=== PATIENT | female | born 1975 | race Caucasian/White ===

== ENCOUNTER → 2023-08-04 | Outpatient (CLI) | payer OTHER, SELFPAY ==
--- OUTSIDE RECORDS SUMMARY | 2023-08-04 20:00 | XMS RPT_ITS | CCD ---
Author Name Unknown Address [address] [place] [address] Organization [facility] Care Team Providers Care Ep Technologist Name Role Phone Pierre Mosher Attending Unavailable Christi Brooks Referring Unavailabl Amanda Valenzuela Denise Primary Care Unavailab Pierre Tomas Attending Unavailable Amanda Ny Referring Unavailab Amanda Mills October Primary Care Unavailab Pierre Tomas Admitting Unavailable Pierre Mosher Unavailable Unavailable Mary Alice Yuan Unavailable Unavailable Shira De [place] Unavailable Unavailable Amanda Ny Unavailable Unavailable Amanda Ny Unavailable Unavailable Kaushal Roche Primary Care Provider KAUSHAL ROCHE Primary Care Unavailable Glo Stroud Primary Care Provider [phone] Glo Stroud Unavailable Gerald Samuel Unavailable Glo Stroud CNP Primary Care Provider Glo Valdes Primary Care Provider [phone] Glo Valdes Primary Care Provider [phone] Glo Stroud CNP Primary Care Provider Glo Valdes Primary Care Provider [phone] GLO STROUD Primary Care Unavailable GLO STROUD Referring Unavailable ELLIOTT AGUIRRE Attending Unavailable GLO STROUD Admitting Unavailable SIRENA, ALEXA FIDENCIO Referring Unavailable SIRENA, ALEXA FIDENCIO Attending Unavailable LUANNE, GLO TEGAN Primary Care Unavailable VIAU, ELLIOTT EBONIE Referring Unavailable VIAU, ELLIOTT LUCIOER Attending Unavailable LUANNE, GLO TEGAN Primary Care Unavailable VIAU, ELLIOTT EBONIE Referring Unavailable VIAU, ELLIOTT EBONIE Attending Unavailable LUANNE, GLO TEGAN Primary Care Unavailable LUANNE, GLO ETGAN Primary Care Unavailable VIAU, ELLIOTT EBONIE Referring Unavailable VIAU, ELLIOTT EBONIE Attending Unavailable LUANNE, GLO Attending Unavailable LUANNE, GLO Consulting Unavailable LUANNE, GLO Primary Care Unavailable LUANNE, GLO Admitting Unavailable PROVIDER, UNKNOWN Consulting Unavailable LUANNE, GLO Attending Unavailable LUANNE, GLO Consulting Unavailable LUANNE, GLO Primary Care Unavailable LUANNE, GLO Admitting Unavailable PROVIDER, UNKNOWN Consulting Unavailable LUANNE, GLO Consulting Unavailable LUANNE, GLO Primary Care Unavailable LUANNE, GLO Admitting Unavailable LUANNE, GLO Attending Unavailable PROVIDER, UNKNOWN Consulting Unavailable Zion, Dr. Sonia Willard Attending Bhupinder Stroud, Ms. Glo Javed Referring Unavailable Zion, Dr. Sonia Willard Attending Bhupinder Donovan, Dr. Sonia Willard Admitting Bhupinder Stroud, Ms. Glo Tegan Referring Unavailable Luanne, Glo K Unavailable Unavailable Unavailable Luanne [employer], Glo K Primary Care Provider [phone] Luanne EVENT COORDINATOR-SHANK FAKER, Glo K Primary Care Provider LUANNE, GLO K Referring Unavailable LUANNE, GLO K Primary Care Unavailable LUANNE, GLO K Attending Unavailable LUANNE, GLO K Referring Unavailable LUANNE, GLO K Primary Care Unavailable LUANNE, GLO K Attending Unavailable SIEGAL, BALDEV Attending Unavailable SIEGAL, BALDEV Referring Unavailable LUANNE, GLO K Primary Care Unavailable SIEGAL, BALDEV Attending Unavailable SIEGAL, BALDEV Referring Unavailable LUANNE, GLO K Primary Care Unavailable SIEGAL, BALDEV Referring Unavailable LUANNE, GLO K Primary Care Unavailable SIEGAL, BALDEV Attending Unavailable SELF, SELF Referring Unavailable JJ NGO Attending Unavailable LUANNE, GLO K Primary Care Unavailable LUANNE, GLO K Attending Unavailable LUANNE, GLO K Referring Unavailable LUANNE, GLO K Primary Care Unavailable LUANNE, GLO K Primary Care Unavailable LUANNE, GLO K Primary Care Unavailable LUANNE, GLO K Primary Care Unavailable LUANNE, GLO K Primary Care Unavailable LUANNE, GLO K Primary Care Unavailable SIEGAL, BALDEV Admitting Unavailable BALDEV RUIZ Attending Unavailable BALDEV RUIZ Referring Unavailable BALDEV RUIZ Admitting Unavailable BALDEV RUIZ Attending Unavailable BALDEV RUIZ Referring Unavailable GLO STROUD Primary Care Unavailable GLO STROUD Primary Care Unavailable Allergies Allergy Classification Reported Allergen(s) Allergy Type Date of Onset Reaction(s) Facility (9 sources) Bromocriptine; Translations: [BROMOCRIPTINE] Drug Allergy 6 GI Intolerance [facility] (9 sources) Codeine; Translations: [CODEINE] Drug Allergy 6 GI Intolerance [facility] (9 sources) Meperidine; Translations: [MEPERIDINE] Drug Allergy 6 GI Intolerance [facility] (9 sources) Morphine; Translations: [MORPHINE] Drug Allergy 6 GI Intolerance [facility] (9 sources) Coconut Flavor; Translations: [COCONUT FLAVOR] Propensity to adverse reactions to drug 6 Anaphylaxis [facility] (1 source) Coconut Oil Drug Allergy Swelling/Edema, Rash [facility] Medications Current Medications Medication Drug Class(es) Dates Sig (Normalized) Sig (Original) amitriptyline hydrochloride 25 mg oral tablet (12 sources) Tricyclic Antidepressant Start: 09-20-2022 take 2 tablets by mouth at bedtime Amitriptyline 25 MG tablet Indications: Tension headache Take 2 tablets by mouth at bedtime. 60 tablet 6 11/24/2022 Active Completed/Discontinued Medications Medication Drug Class(es) Dates Sig (Normalized) Sig (Original) biotin 5 mg oral capsule (1 source) Start: 8 Biotin 5000 MCG Oral Capsule USE DIRECTED Refills: 0 DO Start : 28-Mar-2018 Active onabotulinumtoxina 100 unt injection (7 sources) Acetylcholine Release Inhibitor Start: 3 End: 3 onabotulinumtoxinA (BOTOX) injection 200 Units Problems Active Problems Problem Classification Problem Date Documented Da te Episodic/Chronic Alcohol-related disorders (1 source) Alcohol dependence, uncomplicated; Translations: [Alcohol dependence, uncomplicated] Onset: 07-12-2022 Chronic Anxiety disorders (3 sources) Other specified anxiety disorders; Translations: [Mixed anxiety and depressive disorder] Onset: 06-07-2018 Chronic Complication of device; implant or graft (1 source) Ulcer of anastomosis; Translations: [Gastrojejunal ulcer, unspecified as acute or chronic, without mention of hemorrhage or perforation, without mention of obstruction] Episodic Complication of device; implant or graft (1 source) 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, implants and grafts, initial encounter; Translations: [Stenosis due to other internal prosth dev/grft, init] Onset: 06-07-2018 Deficiency and other anemia (1 source) Anemia; Translations: [Anemia, unspecified] Episodic Diabetes mellitus without complication (1 source) Impaired fasting glucose; Translations: [Impaired fasting glucose] Onset: 07-13-2022 Episodic Esophageal disorders (5 sources) Gastro-esophageal reflux disease without esophagitis; Translations: [Gastroesophageal reflux disease without esophagitis] Onset: 06-07-2018 Chronic Gastroduodenal ulcer (except hemorrhage) (1 source) Ulcer of anastomosis; Translations: [Anastomotic ulcer S/P gastric bypass] Chronic Headache; including migraine (12 sources) Migraine; Translations: [Migraine, unspecified, not intractable, without status migrainosus] Onset: 08-16-2022 Chronic Nausea and vomiting (6 sources) Nausea with vomiting, unspecified; Translations: [Vomiting] Onset: 06-07-2018 Episodic Nausea and vomiting (1 source) Vomiting, unspecified; Translations: [Vomiting, unspecified] Onset: 03-28-2018 Nutritional deficiencies (1 source) Vitamin D deficiency, unspecified; Translations: [Vitamin D deficiency, unspecified] Onset: 07-12-2022 Chronic Other aftercare (1 source) Patient encounter status; Translations: [Encounter for follow-up examination after completed treatment for conditions other than malignant neoplasm] 12-05-2022 Episodic Other and ill-defined cerebrovascular disease (3 sources) Cerebral aneurysm, nonruptured; Translations: [Cerebral aneurysm, nonruptured] Onset: 06-07-2018 Chronic Other and ill-defined cerebrovascular disease (1 source) Intracranial aneurysm; Translations: [Cerebral aneurysm, nonruptured] Chronic Other circulatory disease (1 source) H/O: cardiovascular disease; Translations: [Personal history of other diseases of the circulatory system] 12-05-2022 Episodic Other gastrointestinal disorders (1 source) Diarrhea, unspecified; Translations: [Diarrhea, unspecified] Onset: 06-07-2018 Episodic Other gastrointestinal disorders (4 sources) Bariatric surgery status; Translations: [Bariatric surgery status] Onset: 03-28-2018 Episodic Other gastrointestinal disorders (1 source) History of bypass of stomach; Translations: [Bariatric surgery status] Episodic Other gastrointestinal disorders (1 source) History of bariatric surgical procedure; Translations: [Bariatric surgery status] 12-05-2022 Episodic Other hereditary and degenerative nervous system conditions (1 source) Essential tremor; Translations: [Essential tremor] Chronic Other nervous system disorders (2 sources) Other chronic pain; Translations: [Other chronic pain] Onset: 08-16-2022 Chronic Other nervous system disorders (1 source) Intermittent tremor; Translations: [Tremor, unspecified] Episodic Other non-traumatic joint disorders (1 source) Bilateral chronic pain of upper limbs; Translations: [Pain in right shoulder] Episodic Other non-traumatic joint disorders (1 source) Shoulder pain; Translations: [Pain in right shoulder] 10-03-2022 Episodic Other nutritional; endocrine; and metabolic disorders (2 sources) Unintentional weight loss; Translations: [Loss of weight] Episodic Other screening for suspected conditions (not mental disorders or infectious disease) (2 sources) Encounter for screening for lipoid disorders; Translations: [Patient encounter status] Onset: 07-12-2022 Episodic Residual codes; unclassified (1 source) Tobacco user; Translations: [Tobacco use disorder] Chronic Residual codes; unclassified (2 sources) Altered mental status; Translations: [Altered mental status] 07-26-2021 Episodic Residual codes; unclassified (1 source) Pain; Translations: [Pain, unspecified] 10-03-2022 Episodic Residual codes; unclassified (2 sources) Pain, unspecified; Translations: [Pain, unspecified] Onset: 10-03-2022 Episodic Residual codes; unclassified (1 source) Postmenopausal state; Translations: [Asymptomatic postmenopausal status (age-related) (natural)] Episodic Residual codes; unclassified (1 source) History finding; Translations: [Other specified conditions influencing health status] Episodic Skull and face fractures (1 source) Closed fracture of nasal bones; Translations: [Closed fracture of nasal bone, initial encounter] Episodic Spondylosis; intervertebral disc disorders; other back problems (5 sources) Inflammation of sacroiliac joint; Translations: [Sacroiliitis, not elsewhere classified] Onset: 08-02-2023 4 Chronic Substance-related disorders (3 sources) Nicotine dependence, unspecified, uncomplicated; Translations: [Tobacco user] Onset: 06-07-2018 12-05-2022 Chronic Thyroid disorders (2 sources) Other specified hypothyroidism; Translations: [Hypothyroidism] Onset: 10-08-2022 12-05-2022 Chronic Unclassified (2 sources) MEDICATION COMPLICATIONS 2021 Past or Other Problems Problem Classification Problem Date Documented Da te Episodic/Chronic Other non-traumatic joint disorders (4 sources) Pain in right shoulder; Translations: [Pain in right shoulder] Onset: 08-16-2022 Episodic Other non-traumatic joint disorders (4 sources) Pain in left shoulder; Translations: [Pain in left shoulder] Onset: 08-16-2022 Episodic Other nutritional; endocrine; and metabolic disorders (1 source) Abnormal weight loss; Translations: [Abnormal weight loss] Onset: 03-28-2018 Episodic Spondylosis; intervertebral disc disorders; other back problems (7 sources) Neck pain; Translations: [Cervicalgia] Onset: 08-16-2022 10-03-2022 Episodic Unclassified (1 source) History of bypass of stomach; Translations: [Gastric bypass status for obesity] Unclassified (1 source) History finding; Translations: [No pertinent past medical history] Unclassified (1 source) Low back pain, unspecified; Translations: [Low back pain, unspecified] Onset: 10-03-2022 Results Test Name Value Interpretation Reference Range Facil ity Vital Signs Date Time Vital Sign Value Performing Clinician Facility 08-03-2023 11:30-0500 Diastolic blood pressure 61 mm[Hg] Baldev Ruiz MD Work Phone: [facility] 08-03-2023 11:30-0500 Respiratory rate 16 /min Baldev Ruiz MD Work Phone: [facility] 08-03-2023 11:30-0500 Systolic blood pressure 120 mm[Hg] Baldev Ruiz MD Work Phone: [facility] 08-03-2023 11:20-0500 Body temperature 97.3 [degF] Baldev Ruiz MD Work Phone: [facility] 08-03-2023 11:20-0500 Heart rate 74 /min Baldev Ruiz MD Work Phone: [facility] 08-03-2023 11:20-0500 SaO2% (BldA) [Mass fraction] 96 % Baldev Ruiz MD Work Phone: [facility] 08-03-2023 10:35-0500 Body height 162.6 cm Baldev Ruiz MD Work Phone: [facility] 08-03-2023 10:35-0500 Body mass index (BMI) [Ratio] 21.97 kg/m2 Baldev Ruiz MD Work Phone: [facility] 08-03-2023 10:35-0500 Body weight 58.06 kg Baldev Ruiz MD Work Phone: [facility] 11-22-2022 13:44-0400 Body height 162.5 cm Sonia Donovan MD Work Phone: [facility] 11-22-2022 13:44-0400 Body mass index (BMI) [Ratio] 32.19 kg/m2 Sonia Donovan MD Work Phone: [facility] 11-22-2022 13:44-0400 Body weight 85 kg Sonia Donovan MD Work Phone: [facility] 10-03-2022 14:51-0400 Body height 162.6 cm Elliott Aguirre MD Work Phone: [facility] 10-03-2022 14:51-0400 Body mass index (BMI) [Ratio] 27.46 kg/m2 Elliott Aguirre MD Work Phone: [facility] 10-03-2022 14:51-0400 Body weight 72.58 kg Elliott Aguirre MD Work Phone: [facility] 09-10-2021 15:21-0400 Body height 162.6 cm Jj Ngo MD Work Phone: [facility] 09-10-2021 15:21-0400 Body mass index (BMI) [Ratio] 21.97 kg/m2 Jj Ngo MD Work Phone: [facility] 09-10-2021 15:21-0400 Body weight 58.06 kg Jj Ngo MD Work Phone: [facility] 09-10-2021 15:21-0400 Diastolic blood pressure 77 mm[Hg] Jj Ngo MD Work Phone: [facility] 09-10-2021 15:21-0400 Heart rate 83 /min Jj Ngo MD Work Phone: [facility] 09-10-2021 15:21-0400 SaO2% (BldA) [Mass fraction] 98 % Jj Ngo MD Work Phone: [facility] 09-10-2021 15:21-0400 Systolic blood pressure 110 mm[Hg] Jj Ngo MD Work Phone: [facility] 07-26-2021 01:00-0500 Diastolic blood pressure 68 mm[Hg] Glo Stroud Other Phone: [facility] 07-26-2021 01:00-0500 Heart rate 82 /min Glo Stroud Other Phone: [facility] 07-26-2021 01:00-0500 Respiratory rate 18 /min Glo Stroud Other Phone: [facility] 07-26-2021 01:00-0500 SaO2% (BldA) [Mass fraction] 96 % Glo Stroud Other Phone: [facility] 07-26-2021 01:00-0500 Systolic blood pressure 105 mm[Hg] Glo Stroud Other Phone: [facility] 2021 23:36-0500 Body height 162.5 cm Glo Stroud Other Phone: [facility] 2021 23:36-0500 Body temperature 97.52 [degF] Glo Stroud Other Phone: [facility] 2021 23:36-0500 Body weight 54.5 kg Glo Luanne Other Phone: [facility] 03-30-2020 11:00-0500 Body Temperature 96.3 [degF] [facility] 03-30-2020 11:00-0500 BP Diastolic 87 mm[Hg] [facility] 03-30-2020 11:00-0500 BP Systolic 138 mm[Hg] [facility] 03-30-2020 11:00-0500 Pulse (Heart Rate) 85 /min [facility] 03-30-2020 11:00-0500 Pulse Oximetry 94 % [facility] 03-30-2020 11:00-0500 Respiratory Rate 16 /min [facility] 03-30-2020 08:33-0500 BMI (Body Mass Index) 19.91 kg/m2 [facility] 03-30-2020 08:33-0500 Body weight 52.62 kg [facility] 03-30-2020 08:33-0500 Height 162.6 cm [facility] Encounters Encounter Date Encounter Type Care Provider Facility Start: 08-03-2023 End: 08-03-2023 ambulatory BALDEV RUIZ [facility] Start: 08-03-2023 End: 08-03-2023 Subsequent hospital visit by physician Baldev Ruiz MD Work Phone: [facility] Periop Procedures Date Procedure Procedure Detail Performing Clinician Start: 02-22-2023 Mri spinal canal lum bar w/o contrast material Baldev Ruiz MD Work Phone: Start: 11-22-2022 SURGICAL PATHOLOGY RESULTS Sonia Donovan MD Work Phone: Start: 11-22-2022 Esophagoscopy flexib le transoral diagnostic Glo Stroud EVENT COORDINATOR-SHANK FAKER Work Phone: Start: 10-03-2022 Arthrocentesis aspir &/inj major jt/bursa w/o us Elliott Aguirre MD Work Phone: Start: 10-03-2022 ORDERS (SCAN) Baldev cordero MD Work Phone: Start: 08-16-2022 Radex shoulder compl ete minimum 2 views Glo Stroud [employer] Work Phone: Start: 08-16-2022 Chemodervate facial/trigem/cerv musc migraine Jj Ngo MD Work Phone: Start: 04-19-2022 Chemodervate facial/trigem/cerv musc migraine Jj Ngo MD Work Phone: Start: 01-18-2022 Chemodervate facial/trigem/cerv musc migraine Jj Ngo MD Work Phone: Start: 10-19-2021 Chemodervate facial/trigem/cerv musc migraine Jj Ngo MD Work Phone: Start: 2021 End: 2021 EKG impression Gerald Samuel Start: 2021 Thyrotropin [Units/v olume] in Serum or Plasma Sonia Donovan MD Work Phone: Start: 03-27-2020 SCAN OTHER ORDERS Provi alec Not In System Start: 06-07-2018 Anesthesia upper gi endoscopic px nos Pierre Mosher Start: 06-07-2018 Egd dilation gastric/duodenal stricture Pierre Mosher section Pierre Joseph th History of Total Gastrectomy With Zita-en-Y Reconstruction Pierre Mosher Tonsillectomy Pierre Mosher Plan of Treatment Date Care Activity Detail Author Start: 08-03-2023 End: 08-03-2023 Inject si joint arthrgrphy&/anes/steroid w/sydney [facility] Start: 2023 Zoster vaccine hzv l ngozi for subcutaneous use ZOSTER (SHINGLES) VACCINE (1 of 2) [facility] Start: 2023 Zoster Vaccines (1 of 2) Zoste r Vaccines (1 of 2) [facility] Start: 01-27-2023 COVID-19 VACCINE ( season) COVID-19 VACCINE ( season) [facility] Start: 01-27-2023 Influenza vaccination O [facility] Start: 11-14-2022 End: 11-14-2022 Patient encounter procedure 11/14/2022 Office Visit Neurology Jj Ngo MD [address] [place] [id number] [facility] Neurology Start: 10-17-2022 End: 10-17-2022 Patient encounter procedure 10/17/2022 3:30 PM EDT Office Visit [facility] [address] [place] [address] [place] [phone] Elliott Aguirre MD [address] [place] [id number] [facility] Start: 2022 Thyroid stimulating hormone measurement TSH Level [facility] Start: 04-19-2022 End: 04-19-2022 Patient encounter procedure 04/19/2022 Office Visit Neurology Jj Ngo MD [address] [place] [id number] [facility] Neurology Start: 01-27-2022 Influenza vaccination A [facility] Start: 01-18-2022 End: 01-18-2022 Patient encounter procedure 01/18/2022 Office Visit Neurology Jj Ngo MD [address] [place] [id number] [facility] Neurology Start: 10-13-2021 End: 09-29-2022 MR angiography of head and brain without contrast MRA Brain Without Contrast Imaging Routine Cerebral aneurysm Expected: 10/13/2021, Expires: 09/29/2022 [facility] Work Phone: Immunizations Immunization Date Immunization Notes Care Provider Fa cili 04-09-2020 influenza virus vaccine, unspecified formulation Jj Ngo MD Work Phone: [facility] Payers Date Payer Category Payer [employer] ( [employer] others) [id number] 2021 [employer] others) [id number] 2009 [employer] ( [employer] others) [id number] 2009 Unknown [facility] [id number] 2009-Present [id number] 2009 Unknown [id number] 2009 Unknown 1973 Unknown [id number] 2.16.840.1.619201.3.579.2. 356 1973 Unknown [id number] 2.16.840.1.207713.3.579.2. 356 1973 Unknown [id number] 2.16.840.1.170696.3.579.2. 900 1973 Unknown [id number] 2.16.840.1.114723.3.579.2. 903 1973 Unknown [id number] 2.16.840.1.066979.3.579.2. 903 1973 Unknown [id number] 2.16.840.1.409862.3.579.2. 903 1973 Unknown [id number] 2.16.840.1.006516.3.579.2. 903 1973 Unknown [id number] 2.16.840.1.138373.3.579.2. 903 1973 Unknown [id number] 2.16.840.1.802825.3.579.2. 651 1973 Unknown [id number] 2.16.840.1.910320.3.579.2. 651 1973 Unknown [id number] 2.16.840.1.343380.3.579.2. 651 1973 Unknown [id number] 2.16.840.1.688481.3.579.2. 356 1973 Unknown [id number] 2.16.840.1.698098.3.579.2. 356 1973 Unknown [id number] 2.16.840.1.881044.3.579.2. 983 1973 Unknown [id number] 2.16.840.1.952272.3.579.2. 983 1973 Unknown [id number] 2.16.840.1.804174.3.579.2. 983 1973 Unknown [id number] 2.16.840.1.580570.3.579.2. 983 1973 Unknown [id number] 2.16.840.1.356310.3.579.2. 983 1973 Unknown [id number] 2.16.840.1.782066.3.579.2. 983 1973 Unknown [id number] 2.16.840.1.897599.3.579.2. 983 1973 Unknown [id number] 2.16.840.1.114525.3.579.2. 983 1973 Unknown [id number] 2.16.840.1.478801.3.579.2. 983 1973 Unknown [id number] 2.16.840.1.870469.3.579.2. 983 1973 Unknown [id number] 2.16.840.1.059038.3.579.2. 983 1973 Unknown [id number] 2.16.840.1.637716.3.579.2. 983 1973 Unknown [id number] 2.16.840.1.213972.3.579.2. 983 1973 Unknown [id number] 2.16.840.1.685349.3.579.2. 983 1973 Unknown [id number] 2.16.840.1.037390.3.579.2. 983 1973 Unknown [id number] 2.16.840.1.941964.3.579.2. 983 Social History Date Type Detail Facility Start: 08-13-2017 End: 09-10-2021 Tobacco smoking status NHIS Current every day smoker [facility] Work Phone: Start: 08-13-2017 End: 09-10-2021 Cigarettes smoked current (pack per day) - Reported [facility] Start: 08-13-2017 End: 10-03-2022 Tobacco use and exposure Never used [facility] Start: 08-13-2017 End: 10-03-2022 Alcohol intake Current drinker of alcohol (finding) [facility] Start: 08-08-2017 Alcohol Comment occasional [facility] Start: 1975 Sex Assigned At Not on file O [facility] Start: 09-23-2022 End: 10-03-2022 Exposure to SARS-CoV-2 (event) Not sure [facility] Tobacco smoking consumption unknown [facility] Start: 09-10-2021 Tobacco use and exposure User of smokeless tobacco [facility] History of tobacco use Cigarette Smoker [facility] Start: 04-14-2021 End: 09-10-2021 Tobacco use panel [facility] Start: 03-30-2020 Gender identity Identifies as female gender (finding) [facility] Start: 11-15-2021 Sexual orientation Heterosexual (fin ding) [facility] Start: 08-03-2023 Alcoholic beverage intake Ex-drinker (finding) [facility] NEGATED: Highlighted row - - [facility] Recommendi [facility] Work Phone: Medical Equipment Procedure Code Equipment Code Equipment Origin al Text Equipment Identifier Dates Closure 5fr Vasc ular [employer] W/Extra Card Boxer Min Order 10 - [id number] Start: 08-08-2017 Functional Status Date Assessment Result Facility NEGATED: Highlighted row Functional performance Functional status health issues are not documented Disease [facility] Work Phone: Mental Status Date Assessment Result Facility NEGATED: Highlighted row Cognitive function [Interpretation] Cognitive status health issues are not documented Disease -[facility] Work Phone: Clinical Notes 09-10-2021 to 08-03-2023 Nursing Notes - Antoinette Messina RN - 08/03/2023 11:38 AM ESTNursing Notes - Antoinette Messina RN - 08/03/2023 11:38 AM ESTNursing Notes - Antoinette Messina RN - 08/03/2023 11:37 AM EST Note Date & Type Note Facility 08-03-2023 Nurse Note Pt ambulated off unit at this time with spouse. [facility] 08-03-2023 Miscellaneous Notes Pt ambulated off unit at this time with spouse. Discharge instructions provided, pt states understanding and denies questions. Pt states she understands pain diary. POST OPERATIVE/PROCEDURE NOTE Yisel Hickman ([id number]) SURGEON Surgeons and Role: * Baldev Ruiz MD - Primary RADIO ANTENNA INSTALLER None ANESTHESIOLOGIST No anesthesia staff entered. SURGICAL STAFF Sizing Machine Operator: Willian Bullard RN Scrub Person: Glo Rudolph RN PROCEDURE PERFORMED Procedure(s) (LRB): INJECTION FOR ARTHROGRAPHY SACROILIAC W/ IMAGE GUIDANCE-PATIENT WILL ARRIVE AT 1030 PER HERON FROM THE OFFICE (Right) PRIMARY CLOSURE No ANESTHESIA (type of) Local ESTIMATED BLOOD LOSS None DRAINS None BLOOD PRODUCTS None FLUIDS No intake or output data in the 24 hours ending 08/03/23 1121 PRE OPERATIVE DIAGNOSIS Sacroiliitis [M46.1] POST OPERATIVE DIAGNOSIS Post-Op Diagnosis Codes: * Sacroiliitis [M46.1] FINDINGS No significant abnormalities CONDITION OF PATIENT Stable COMPLICATIONS None GRAFTS AND/OR IMPLANTS See OR Nursing Documentation SPECIMENS No specimen sent * No specimens in log * Baldev Ruiz MD August 03, 2023 11:21 AM documented in this encounter [facility] 08-03-2023 Nurse Note Discharge instructions provided, pt states understanding and denies questions. Pt states she understands pain diary. [facility] 08-03-2023 Hospital Discharge instructions Antoinette Messina RN - 08/03/2023 11:27 AM EST POST SPINAL BLOCK/DISCOGRAM HOME INSTRUCTIONS Dr. [facility] Activity at Home - Gentle activities today. You may resume normal activities tomorrow. - Limit the amount of heavy lifting and strenuous exercise to a minimum. Incision Care - You may remove your Band-Aid tomorrow and take a shower. PLEASE MAKE SURE NOTHING IS RUBBING AGAINST SURGICAL SITE Diet - You may return to your normal daily diet. Slightly increase the amount of fluids you drink today. Medications - Pain medications should be kept to a minimum in order to determine effectiveness of the procedure. All other routine daily medications should be restarted unless specified by your doctor. When to Call Your Surgeon - Your temperature is 101 degrees or above and does not come down with Tylenol. - You notice drainage, increased redness, or warmth at the injection site. - You have calf pain or unusual swelling in your lower legs. - If you are experiencing shortness of breath,loose control of your bowel/bladder, chest pain, or abnormal coughing CALL 911. - Call the office with any questions, problems, or to schedule your next appointment. Our number is . For the next 24 hours: DO NOT DRIVE OR OPERATE HEAVY MACHINERY. DO NOT DRINK ALCOHOL. DO NOT MAKE ANY LIFE OR LEGAL DECISIONS. documented in this encounter [facility] 08-03-2023 Surgery Postoperative evaluation and management note POST OPERATIVE/PROCEDURE NOTE Yisel Hickman ([id number]) SURGEON Surgeons and Role: * Baldev Ruiz MD - Primary RADIO ANTENNA INSTALLER None ANESTHESIOLOGIST No anesthesia staff entered. SURGICAL STAFF Sizing Machine Operator: Willian Bullard RN Scrub Person: Glo Rudolph RN PROCEDURE PERFORMED Procedure(s) (LRB): INJECTION FOR ARTHROGRAPHY SACROILIAC W/ IMAGE GUIDANCE-PATIENT WILL ARRIVE AT 1030 PER HERON FROM THE OFFICE (Right) PRIMARY CLOSURE No ANESTHESIA (type of) Local ESTIMATED BLOOD LOSS None DRAINS None BLOOD PRODUCTS None FLUIDS No intake or output data in the 24 hours ending 08/03/23 1121 PRE OPERATIVE DIAGNOSIS Sacroiliitis [M46.1] POST OPERATIVE DIAGNOSIS Post-Op Diagnosis Codes: * Sacroiliitis [M46.1] FINDINGS No significant abnormalities CONDITION OF PATIENT Stable COMPLICATIONS None GRAFTS AND/OR IMPLANTS See OR Nursing Documentation SPECIMENS No specimen sent * No specimens in log * Baldev Ruiz MD August 03, 2023 11:21 AM [facility] [employer] Work Phone: 08-03-2023 Nurse Note Patient transported per cart to outpatient bay 13. Report given to outpatient RN. OR 3 room temp 64.5 degrees F and humidity 39%. documented in this encounter [facility] 08-03-2023 Nurse Surgical operation note Patient transported per cart to outpatient bay 13. Report given to outpatient RN. [facility] 08-03-2023 Nurse Surgical operation note OR 3 room temp 64.5 degrees F and humidity 39%. [facility] 11-22-2022 Note Patient Name: Yisel Hickman Procedure Date: 11/22/2022 2:40 PM Date of : 1975 Admit Type: Outpatient Site: [place] Procedure Room 2 Ethnicity: Not or Race: White Attending MD: Sonia Donovan MD, [id number] Procedure: Upper GI endoscopy Indications: Follow-up of gastro-esophageal reflux disease, Status post gastric bypass. Previous EGD 06/07/18 (Dr. Pierre Mosher) revealed mild stenosis of the gastrojejunostomy with significant marginal ulceration. This was dilated to 15 mm. Otherwise normal post RYGB anatomy. Patient reports that she has had a marked weight gain recently. Patient Profile: This is a 47 year old female. Providers: Sonia Donovan MD (Doctor), Sara Watkins RN (Nurse), Kristi Joy, Pressure Tester Referring: Glo Stroud Provider Care Team: Glo Stroud Medicines: Monitored Anesthesia Care Complications: No immediate complications. Procedure: Pre-Anesthesia Assessment: - Prior to the procedure, a History and Physical was performed, and patient medications and allergies were reviewed. The patient is competent. The risks and benefits of the procedure and the sedation options and risks were discussed with the patient. All questions were answered and informed consent was obtained. Patient identification and proposed procedure were verified by the physician and the nurse in the procedure room. Mental Status Examination: alert and oriented. Airway Examination: normal oropharyngeal airway and neck mobility. Respiratory Examination: clear to auscultation. CV Examination: regular rate and rhythm. Prophylactic Antibiotics: The patient does not require prophylactic antibiotics. Prior Anticoagulants: The patient has taken no anticoagulant or antiplatelet agents. After reviewing the risks and benefits, the patient was deemed in satisfactory condition to undergo the procedure. The anesthesia plan was to use monitored anesthesia care (MAC). Immediately prior to administration of medications, the patient was re-assessed for adequacy to receive sedatives. The heart rate, respiratory rate, oxygen saturations, blood pressure, adequacy of pulmonary ventilation, and response to care were monitored throughout the procedure. The physical status of the patient was re-assessed after the procedure. - Prior Aspirin/ NSAID therapy: The patient has taken no aspirin or NSAID medications. After obtaining informed consent, the endoscope was passed under direct vision. Throughout the procedure, the patient's blood pressure, pulse, and oxygen saturations were monitored continuously. The diagnostic upper endoscope was introduced through the mouth, and advanced to the jejunum. The upper GI endoscopy was accomplished without difficulty. The patient tolerated the procedure well. Findings: The examined esophagus was normal. The Z-line was regular and was found 37 cm from the incisors. Evidence of a gastric bypass was found. A gastric pouch with a 4 cm length from the GE junction to the gastrojejunal anastomosis was found containing jose. The staple line appeared intact. The gastrojejunal anastomosis was characterized by healthy appearing mucosa. This was traversed. The lcgto-sb-suozloa limb was characterized by healthy appearing mucosa. The woxjmvst-or-qsarrev limb was not examined as it could not be reached. The excluded stomach was not examined as it could not be reached. Patchy mildly erythematous mucosa without bleeding was found in the gastric pouch. Biopsies were taken with a cold forceps for histology. The examined jejunum was normal. Moderate Sedation: Not applicable. Impression: - Z-line regular, 37 cm from the incisors. - Gastric bypass with a pouch 4 cm in length and (more content not included)... PROVATION - 10-03-2022 History of Present illness Narrative Associated Order(s): LG Jt Injection/Arthrocentesis: L subacromial bursa Post-Procedure Diagnose(s): Bilateral shoulder pain, unspecified chronicity LG Jt Injection/Arthrocentesis: L subacromial bursa Performed by: Elliott Aguirre MD Authorized by: Elliott Aguirre MD CPT 86232 - Large Joint Arthrocentesis: Consent given by: Patient Timeout performed at: 10/03/2022 3:26 PM Physician or proceduralist has discussed critical or nonroutine steps, procedure duration and anticipated blood loss: Yes Supporting Documentation: Indications: Pain Procedure Details: Location: Shoulder Site: L subacromial bursa Needle size: 22 G Medications: 40 mg methylPREDNISolone acetate 40 mg/mL Anesthetic used: Lidocaine 1% OPG [address] ([address]) [facility] [address] [facility] [id number] Yisel Hickman is a 47 y.o. female being seen today, 10/03/22, Chief Complaint Patient presents with Right Shoulder - Pain Left Shoulder - Pain Neck - Pain [chief complaint] neck pain bilateral shoulder pain left worse than right HPI Dictation: This lady has symptoms for the 6 months or more she is on meloxicam which she does not feel is helped with significant degree she has had x-rays of her shoulders which are unremarkable her neck x-ray shows loss of normal her daughter curvature some mild degenerative disc disease her pain however is primarily anterolateral shoulder radiating to the elbow with abduction forward flexion but occasional numbness and tingling in both hands in a nondermatomal pattern [hpi] Physical Exam Dictation: [PE] cervical range of motion mildly restricted negative Spurling's with extension turning and leaning to both sides is no radicular symptoms her shoulder however has a pause impingement test increased pain abduction forward flexion past 90 degrees Assessment and Plan Dictation: [AP] early degenerative disc disease cervical spine symptoms more suggestive today however of impingement tendinitis left shoulder plan left shoulder injected today with Xylocaine and cortisone we will see her back in 2 weeks for recheck I have reviewed all relevant histories, medications, allergies, and problem list items with Yisel Hickman during this visit. Review of Systems Constitutional: Negative for chills and fever. HENT: Negative for congestion. Respiratory: Negative for shortness of breath. Cardiovascular: Negative for chest pain. Gastrointestinal: Negative for diarrhea, nausea and vomiting. Neurological: Negative for headaches. Psychiatric/Behavioral: Negative for behavioral problems. Ht 5' 4 Wt 72.6 kg (160 lb) BMI 27.46 kg/m Imaging: No results found. 1. Neck pain 2. Bilateral shoulder pain, unspecified chronicity Ambulatory referral to Sports Medicine Return in about 2 weeks (around 10/17/2022). Elliott Aguirre MD documented in this encounter [facility] 08-16-2022 History of Present illness Narrative Associated Order(s): PREEMPT Chemodenervation: Migraine Botulinum Toxin Injections for Chronic Migraine Interim History Yisel Hickman presents for her 4th session of Botox for chronic migraine. Botox has reduced migraine frequency. PREEMPT Chemodenervation: Migraine Date/Time: 08/16/2022 11:15 AM Performed by: Jj Ngo MD Authorized by: Jj Ngo MD Comments: Description of Procedure: After discussing the risks and benefits of botulinum toxin, the patient provided informed consent. The patient was placed in the seated position on the examination table. The skin was prepped using alcohol pads. A 30-gauge, 0.5 inch-long needle was used with four 1 cc syringes. Concentration: Two 100 unit vials of botox were diluted into 4 ml of normal saline for a concentration of 50 units/1ml. A total of 175 units of botulinum toxin were used and injected as below (divided equally between left and right unless otherwise indicated): 20 units divided into 4 sites in the frontalis muscles 10 units divided into 2 sites in the mechanical design engineer facilities muscles 5 units divided into 1 site in the procerus muscle 40 units divided into 8 sites in the temporalis muscles 30 units divided into 6 sites in the occipitalis muscles 30 units divided into 6 sites in the trapezius muscles 20 units divided into 4 sites in the cervical paraspinal muscles Additional 10 units, 2 sites, 5 units per side into the temporalis muscles. Additional 10 units, 2 sites, 5 units per side into the occipitalis muscles. A total of 25 units were discarded as unavoidable waste. The patient tolerated the procedure well and left the clinic without any complications. Botox ( 200 ) unit vials [facility]# 5211-9903-77 Lot# [id number] Exp date:08/20 Saline: ( 4 )ML Used 175 units Waste 25 units documented in this encounter [facility] 04-19-2022 History of Present illness Narrative Botox ( 200 ) unit vials [facility]# 5901-9694-00 Lot# [id number] Exp date: 09/19 Saline: ( 4 )ML documented in this encounter [facility] 04-19-2022 Procedure note Associated Ord er(s): PREEMPT Chemodenervation: Migraine Post-Procedure Diagnose(s): Chronic migraine without aura without status migrainosus, not intractable Botulinum Toxin Injections for Chronic Migraine Interim History Yisel Hickman presents for her 3rd session of Botox for chronic migraine. Botox has worked very well for lowering migraine frequency. However she is still having daily tension headaches. PREEMPT Chemodenervation: Migraine Date/Time: 04/19/2022 3:30 PM Performed by: Jj Ngo MD Authorized by: Jj Ngo MD Comments: Description of Procedure: After discussing the risks and benefits of botulinum toxin, the patient provided informed consent. The patient was placed in the seated position on the examination table. The skin was prepped using alcohol pads. A 30-gauge, 0.5 inch-long needle was used with four 1 cc syringes. Concentration: Two 100 unit vials of botox were diluted into 4 ml of normal saline for a concentration of 50 units/1ml. A total of 175 units of botulinum toxin were used and injected as below (divided equally between left and right unless otherwise indicated): 20 units divided into 4 sites in the frontalis muscles 10 units divided into 2 sites in the mechanical design engineer facilities muscles 5 units divided into 1 site in the procerus muscle 40 units divided into 8 sites in the temporalis muscles 30 units divided into 6 sites in the occipitalis muscles 30 units divided into 6 sites in the trapezius muscles 20 units divided into 4 sites in the cervical paraspinal muscles Additional 10 units, 2 sites, 5 units per side into the temporalis muscles. Additional 10 units, 2 sites, 5 units per side into the occipitalis muscles. A total of 25 units were discarded as unavoidable waste. The patient tolerated the procedure well and left the clinic without any complications. Plan: Given the patient's persistent tension headaches, we agreed to increase amitriptyline to 50 mg qhs. She is no longer taking trazodone. I asked her to reduce her dose of melatonin if the added amitriptyline caused excessive morning drowsiness. I also advised to limit her use of ondansetron as this can cause headaches. [facility] 04-19-2022 Procedure note Associated Ord er(s): PREEMPT Chemodenervation: Migraine Post-Procedure Diagnose(s): Chronic migraine without aura without status migrainosus, not intractable Botulinum Toxin Injections for Chronic Migraine Interim History Yisel Hickman presents for her 3rd session of Botox for chronic migraine. Botox has worked very well for lowering migraine frequency. However she is still having daily tension headaches. PREEMPT Chemodenervation: Migraine Date/Time: 04/19/2022 3:30 PM Performed by: Jj Ngo MD Authorized by: Jj Ngo MD Comments: Description of Procedure: After discussing the risks and benefits of botulinum toxin, the patient provided informed consent. The patient was placed in the seated position on the examination table. The skin was prepped using alcohol pads. A 30-gauge, 0.5 inch-long needle was used with four 1 cc syringes. Concentration: Two 100 unit vials of botox were diluted into 4 ml of normal saline for a concentration of 50 units/1ml. A total of 175 units of botulinum toxin were used and injected as below (divided equally between left and right unless otherwise indicated): 20 units divided into 4 sites in the frontalis muscles 10 units divided into 2 sites in the mechanical design engineer facilities muscles 5 units divided into 1 site in the procerus muscle 40 units divided into 8 sites in the temporalis muscles 30 units divided into 6 sites in the occipitalis muscles 30 units divided into 6 sites in the trapezius muscles 20 units divided into 4 sites in the cervical paraspinal muscles Additional 10 units, 2 sites, 5 units per side into the temporalis muscles. Additional 10 units, 2 sites, 5 units per side into the occipitalis muscles. A total of 25 units were discarded as unavoidable waste. The patient tolerated the procedure well and left the clinic without any complications. Plan: Given the patient's persistent tension headaches, we agreed to increase amitriptyline to 50 mg qhs. She is no longer taking trazodone. I asked her to reduce her dose of melatonin if the added amitriptyline caused excessive morning drowsiness. I also advised to limit her use of ondansetron as this can cause headaches. documented in this encounter [facility] 01-18-2022 History of Present illness Narrative Botox ( 200 ) unit vials Lot# [id number] [facility]# 0424-5632-26 Exp date 04/21 documented in this encounter [facility] 01-18-2022 Procedure note Associated Ord er(s): PREEMPT Chemodenervation: Migraine Post-Procedure Diagnose(s): Chronic migraine without aura without status migrainosus, not intractable Botulinum Toxin Injections for Chronic Migraine Interim History Yisel Hickman presents for her second session of botox injections for chronic migraines. She reports having fewer migraine headaches but she is still having frequent tension headaches. She does grit her teeth and feels pain over her temples and at the back of the head. PREEMPT Chemodenervation: Migraine Date/Time: 01/18/2022 11:30 AM Performed by: Jj Ngo MD Authorized by: Jj Ngo MD Comments: Description of Procedure: After discussing the risks and benefits of botulinum toxin, the patient provided informed consent. The patient was placed in the seated position on the examination table. The skin was prepped using alcohol pads. A 30-gauge, 0.5 inch-long needle was used with four 1 cc syringes. Concentration: Two 100 unit vials of botox were diluted into 4 ml of normal saline for a concentration of 50 units/1ml. A total of 175 units of botulinum toxin were used and injected as below (divided equally between left and right unless otherwise indicated): 20 units divided into 4 sites in the frontalis muscles 10 units divided into 2 sites in the mechanical design engineer facilities muscles 5 units divided into 1 site in the procerus muscle 40 units divided into 8 sites in the temporalis muscles 30 units divided into 6 sites in the occipitalis muscles 30 units divided into 6 sites in the trapezius muscles 20 units divided into 4 sites in the cervical paraspinal muscles 10 additional units (5 units per side) into the temporalis muscles 10 additional units (5 units per side) into the occpitalis muscles A total of 25 units were discarded as unavoidable waste. The patient tolerated the procedure well and left the clinic without any complications. [facility] 01-18-2022 Procedure note Associated Ord er(s): PREEMPT Chemodenervation: Migraine Post-Procedure Diagnose(s): Chronic migraine without aura without status migrainosus, not intractable Botulinum Toxin Injections for Chronic Migraine Interim History Yisel Hickman presents for her second session of botox injections for chronic migraines. She reports having fewer migraine headaches but she is still having frequent tension headaches. She does grit her teeth and feels pain over her temples and at the back of the head. PREEMPT Chemodenervation: Migraine Date/Time: 01/18/2022 11:30 AM Performed by: Jj Ngo MD Authorized by: Jj Ngo MD Comments: Description of Procedure: After discussing the risks and benefits of botulinum toxin, the patient provided informed consent. The patient was placed in the seated position on the examination table. The skin was prepped using alcohol pads. A 30-gauge, 0.5 inch-long needle was used with four 1 cc syringes. Concentration: Two 100 unit vials of botox were diluted into 4 ml of normal saline for a concentration of 50 units/1ml. A total of 175 units of botulinum toxin were used and injected as below (divided equally between left and right unless otherwise indicated): 20 units divided into 4 sites in the frontalis muscles 10 units divided into 2 sites in the mechanical design engineer facilities muscles 5 units divided into 1 site in the procerus muscle 40 units divided into 8 sites in the temporalis muscles 30 units divided into 6 sites in the occipitalis muscles 30 units divided into 6 sites in the trapezius muscles 20 units divided into 4 sites in the cervical paraspinal muscles 10 additional units (5 units per side) into the temporalis muscles 10 additional units (5 units per side) into the occpitalis muscles A total of 25 units were discarded as unavoidable waste. The patient tolerated the procedure well and left the clinic without any complications. documented in this encounter [facility] 10-19-2021 History of Present illness Narrative Botox ( 200) unit vials Lot# [id number] [facility]# [id number] Exp date 10/19 4 ML NORMAL SALINE Associated Order(s): PREEMPT Chemodenervation: Migraine BOTULINUM TOXIN INJECTIONS FOR CHRONIC MIGRAINE Yisel Hickman presents for botulinum toxin injections for chronic migraine. She has a daily headache and at least 8 migraines per month. Her headaches have been intractable despite trying mutliple medications. This is her first session of botox. PREEMPT Chemodenervation: Migraine Date/Time: 10/19/2021 2:00 PM Performed by: Jj Ngo MD Authorized by: Jj Ngo MD Comments: Description of Procedure: After discussing the risks and benefits of botulinum toxin, the patient provided informed consent. The patient was placed in the seated position on the examination table. The skin was prepped using alcohol pads. A 30-gauge, 0.5 inch-long needle was used with four 1 cc syringes. Concentration: Two 100 unit vials of botox were diluted into 4 ml of normal saline for a concentration of 50 units/1ml. A total of 155 units of botulinum toxin were used and injected as below (divided equally between left and right unless otherwise indicated): 20 units divided into 4 sites in the frontalis muscles 10 units divided into 2 sites in the mechanical design engineer facilities muscles 5 units divided into 1 site in the procerus muscle 40 units divided into 8 sites in the temporalis muscles 30 units divided into 6 sites in the occipitalis muscles 30 units divided into 6 sites in the trapezius muscles 20 units divided into 4 sites in the cervical paraspinal muscles A total of 45 units were discarded as unavoidable waste. The patient tolerated the procedure well and left the clinic without any complications. documented in this encounter [facility] 09-10-2021 History of Present illness Narrative [facility] NOTE Chief Complaint Patient presents with New Patient migraines History of Present Illness: Yisel Hickman is a pleasant 46 y.o. female who is referred for migraine headaches. The pain can vary in location. It can be pressure-like, pounding or sharp. She has photophobia, phonophobia, nausea and vomiting. She has had a daily headache for the last 3 months. She commonly wakes up with headaches. She has a migraine at least twice per week. She is taking topiramate 100 mg bid and rizatriptan 5 mg tablets. Previous medications have included: amitriptyline, propranolol and sumatriptan. She does have a history of a right M1 fusiform dilatation reported as stable on a recent cerebral angiogram. She sees Dr. Byrne for repeat angiograms every 2 years. She has been under some stress recently. Her daughter lost her son to RUST in February. She has a history of essential tremor. She is also on lamictal for bipolar disorder. Review of Systems HENT: Negative. Eyes: Negative. Respiratory: Negative. Cardiovascular: Negative. Gastrointestinal: Negative. Endocrine: Negative. Genitourinary: Negative. Musculoskeletal: Negative. Allergic/Immunologic: Negative. Neurological: Positive for dizziness, tremors, syncope, facial asymmetry, speech difficulty, weakness, light-headedness, numbness and headaches. Negative for seizures. Hematological: Negative. Psychiatric/Behavioral: Positive for agitation, behavioral problems, confusion, decreased concentration, dysphoric mood, hallucinations and sleep disturbance. Negative for self-injury and suicidal ideas. The patient is nervous/anxious and is hyperactive. Past Medical History: Diagnosis Date GERD (gastroesophageal reflux disease) Kidney stone Migraine No past surgical history on file. History reviewed. No pertinent family history. Social History Tobacco Use Smoking status: Current Every Day Smoker Smokeless tobacco: Current User Current Outpatient Medications Medication Sig cholecalciferol 25 MCG (1000 UNIT) tablet Take 5,000 Units by mouth daily. faMOTIdine 20 MG tablet FLUoxetine 40 MG capsule lamoTRIgine 100 MG tablet Take 100 mg by mouth daily. Melatonin-Pyridoxine (MELATIN PO) Take 5 mg by mouth. omeprazole [address] capsule Take 40 mg by mouth daily. ondansetron 4 MG tablet Take 4 mg by mouth every 8 hours as needed for Nausea / Vomiting. rizatriptan 5 MG tablet Take 5 mg by mouth. May repeat in 2 hours if needed, max daily dose 30 mg topiramate 100 MG tablet Take 100 mg by mouth Twice daily. traZODone 50 MG tablet Take 50 mg by mouth. Allergies Allergen Reactions Coconut (Cocos Nucifera) Allergy Skin Test Anaphylaxis and Rash Physical Exam: BP 110/77 (BP Location: Left arm, BP Position: Sitting) Pulse 83 Ht 1.626 m (5' 4 ) Wt 58.1 kg (128 lb) SpO2 98% BMI 21.97 kg/m Smoking Status Current Every Day Smoker General: Pleasant and cooperative. In no acute distress. Respiratory: Clear to auscultation bilaterally, no significant wheezes, rhonchi, or rales. Cardiovascular: Regular rate and rhythm. No murmurs, rubs, gallops or carotid bruits. HEENT: Normocephalic, atraumatic, no oral lesions or tongue lacerations, mucous membranes are moist. Neurological Examination Mental status: Awake and alert; oriented. Normal attention. Recall intact. Logic normal. No neglect or apraxia. Language fluency and comprehension are normal; object naming intact; repetition intact. Content of speech is normal. There is no dysarthria. Cranial nerves: CN II: Visual nieto intact to confrontation. PERRL. Normal conjunctivae and lids. There is no papilledema on fundoscopy. practice architect III, IV and : Extraocular movements full in all directions. Normal smooth pursuit. Saccades are normal. There is no nystagmus. CN V: Facial sensation is intact to light touch. CN VII: Facial strength normal with symmetric movement. CN VIII: Hearing is grossly intact. CN IX and X: Soft palate elevates symmetrically in the midline CN XI: Shoulder shrug and sternocleidomastoid strength (R/L) 5/5 CN XII: Tongue is midline with normal movement. Motor: Normal bulk and tone. Strength testing is 5/5 in the upper and lower extremities. There is no pronator drift. Postural and kinetic tremor in both hands. Reflexes: 2+ in the upper and lower extremities. Samuels is negative. Plantar responses (Babinski) are flexor. Coordination: No finger to nose or heel to romero dysmetria. Rapid alternating movements are normal. Sensation: Intact to light touch. Gait: Normal posture and base. Normal stride length and vasu. Normal arm swing. Normal turning. Can perform tandem. Romberg is negative. Assessment and Plan: Yisel Hickman is a pleasant 46 y.o. female who presents with chronic migraines. She has a daily headache on topamax 100 mg bid. She has previously tried propranolol and amitriptyline. I think she would be a good candidate for botulinum toxin injections. Yisel was seen today for new patient. Diagnoses and all orders for this visit: Chronic migraine without aura without status migrainosus, not intractable - SCHEDULE PROCEDURE Essential tremor Jj Ngo MD 09/10/2021 Review of Systems HENT: Negative. Eyes: Negative. Respiratory: Negative. Cardiovascular: Negative. Gastrointestinal: Negative. Endocrine: Negative. Genitourinary: Negative. Musculoskeletal: Negative. Allergic/Immunologic: Negative. Neurological: Positive for dizziness, tremors, syncope, facial asymmetry, speech difficulty, weakness, light-headedness, numbness and headaches. Negative for seizures. Hematological: Negative. Psychiatric/Behavioral: Positive for agitation, behavioral problems, confusion, decreased concentration, dysphoric mood, hallucinations and sleep disturbance. Negative for self-injury and suicidal ideas. The patient is nervous/anxious and is hyperactive. documented in this encounter [facility] Diagnosis Chronic migraine without aura without status migrainosus, not intractable- Primary Chronic migraine without aura, without mention of intractable migraine without mention of status migrainosus Essential tremor Essential and other specified forms of tremor [facility] Diagnosis Cerebral aneurysm- Primary Cerebral aneurysm, nonruptured [facility] Diagnosis Intractable chronic migraine without aura and without status migrainosus- Primary Chronic migraine without aura, with intractable migraine, so stated, without mention of status migrainosus Chronic migraine without aura without status migrainosus, not intractable Chronic migraine without aura, without mention of intractable migraine without mention of status migrainosus [facility] Diagnosis Chronic migraine without aura without status migrainosus, not intractable- Primary Chronic migraine without aura, without mention of intractable migraine without mention of status migrainosus [facility] Diagnosis Chronic migraine without aura without status migrainosus, not intractable- Primary Chronic migraine without aura, without mention of intractable migraine without mention of status migrainosus Tension headache [facility] Diagnosis Intractable chronic migraine without aura and without status migrainosus- Primary Chronic migraine without aura, with intractable migraine, so stated, without mention of status migrainosus [facility] Diagnosis Chronic pain of both shoulders Pain in joint, shoulder region [facility] Diagnosis Neck pain- Primary Cervicalgia Bilateral shoulder pain, unspecified chronicity [facility] Diagnosis Pain- Primary Generalized pain Pain Generalized pain [facility] Diagnosis Low back pain, unspecified back pain laterality, unspecified chronicity, unspecified whether sciatica present [facility] Diagnosis Intervertebral disc disorder with radiculopathy of lumbar region Thoracic or lumbosacral neuritis or radiculitis, unspecified [facility] Diagnosis Nausea Nausea alone Encounter for follow-up examination after completed treatment for conditions other than malignant neoplasm Gastro-esophageal reflux disease without esophagitis Bariatric surgery status Personal history of other diseases of the circulatory system Hypothyroidism, unspecified Nicotine dependence, unspecified, uncomplicated documented in this encounter [facility] Work Phone: Evaluation note* Diagnosis Sacroiliitis, not elsewhere classified documented in this encounter [facility] Summary Purpose Family History No Family History Records Found Mother Name Dates Details Family history of lung cance r(V16.1, Z80.1) Status:Active Father Name Dates Details Family history of liver canc er(V16.0, Z80.0) Status:Active Unknown Family Member Name Dates Details Family history of liver canc er: Father(V16.0, Z80.0) Status:Active Family history of lung cance r: Mother(V16.1, Z80.1) Status:Active Advance Directives No Advanced Directives Records FoundDocuments on File Type Date Recorded Patient Professional Benefits Sales Consultant Expl anation Advance Directives and Livin g Will 03/25/2020 4:32 PM Documents on File Type Date Recorded Patient Professional Benefits Sales Consultant Expl anation Advance Directives and Livin g Will 03/30/2020 4:32 PM Reason for Referral Status Reason Specialty Diagnoses / Procedures Re ferred By Contact Referred To Contact New Request Radiology Diagnoses Closed fracture of nasal bone, initial encounter Procedures CT Maxillofacial Without Contrast John Malcolm, DO [address] [place] [address] Specialty Diagnoses / Procedures Referred By Contac t Referred To Contact Neurology Diagnoses Migraine without status migrainosus, not intractable, unspecified migraine type Occasional tremors Glo Stroud, SHANK FAKER [address] [place] [address] Dirk Ramos MD [address] [address] Referral ID Status Reason Start Date Expiration Date V isits Requested Visits Authorized [id number] Authorized 08/23/2021 08/23/2022 1 1 Specialty Diagnoses / Procedures Referred By Contac t Referred To Contact Diagnoses Chronic migraine without aura without status migrainosus, not intractable Jj Ngo MD [address] [place] [address] Referral ID Status Reason Start Date Expiration Date V isits Requested Visits Authorized [id number] New Request 09/10/2021 10/05/2022 1 1 Specialty Diagnoses / Procedures Referred By Contac t Referred To Contact Radiology Diagnoses Cerebral aneurysm Procedures MRA Brain Without Contrast Alexa Byrne MD [address] [facility] [address] [place] [address] Referral ID Status Reason Start Date Expiration Date V isits Requested Visits Authorized [id number] Authorized 10/13/2021 10/13/2022 1 1 Specialty Diagnoses / Procedures Referred By Contac t Referred To Contact Diagnoses Intervertebral disc disorder with radiculopathy of lumbar region Procedures MRI SPINE LUMBAR WITHOUT CONTRAST [place] MRI, LUMBAR SPINE Baldev Ruiz MD [address] [place] [address] [facility] Referral ID Status Reason Start Date Expiration Date Visits Re quested Visits Authorized [id number] Closed 02/07/2023 03/03/2024 1 1 Assessments Diagnosis Closed fracture of nasal bone, initial encounter Additional Source Comments INFORMATION SOURCE (unrecogn ized section and content) DATE CREATED AUTHOR AUTHOR'S ORGANIZ ATION 11/23/2018 [facility] DATE CREATED AUTHOR AUTHOR'S ORGANIZ ATION 03/28/2020 [facility] DATE CREATED AUTHOR AUTHOR'S ORGANIZ ATION 06/20/2020 [facility] DATE CREATED AUTHOR AUTHOR'S ORGANIZ ATION 07/28/2021 [facility] DATE CREATED AUTHOR AUTHOR'S ORGANIZ ATION 07/16/2022 [facility] DATE CREATED AUTHOR AUTHOR'S ORGANIZ ATION 10/06/2022 [facility] DATE CREATED AUTHOR AUTHOR'S ORGANIZ ATION 10/06/2022 [facility] DATE CREATED AUTHOR AUTHOR'S ORGANIZ ATION 10/09/2022 [facility] DATE CREATED AUTHOR AUTHOR'S ORGANIZ ATION 12/01/2022 [facility] DATE CREATED AUTHOR AUTHOR'S ORGANIZ ATION 12/22/2022 [facility] DATE CREATED AUTHOR AUTHOR'S ORGANIZ ATION 08/03/2023 [facility] DATE CREATED AUTHOR AUTHOR'S ORGANIZ ATION 08/04/2023 [facility] Reason for Visit (unrecogniz ed section and content) Status Reason Specialty Diagnoses / Procedures Referre d By Contact Referred To Contact Diagnoses NASAL SEPTAL FRACTURE Procedures SEPTORHINOPLASTY Reason Comments New Patient migraines Reason Comments Botox Injection Chronic migraine Reason Comments Botox Injection Reason Comments Pain Specialty Diagnoses / Procedures Referred By Contac t Referred To Contact Sports Medicine Diagnoses Bilateral shoulder pain, unspecified chronicity Glo Stroud, SHANK FAKER [address] [place] [address] Carla Hahn, SHANK FAKER [address] [place] [address] [place] [address] Referral ID Status Reason Start Date Expiration Date Visits Re quested Visits Authorized [id number] Closed 09/13/2022 09/13/2023 1 1 Specialty Diagnoses / Procedures Referred By Contac t Referred To Contact Diagnoses Intervertebral disc disorder with radiculopathy of lumbar region Procedures MRI SPINE LUMBAR WITHOUT CONTRAST [place] MRI, LUMBAR SPINE Baldev Ruiz MD [facility] [place] [id number] [facility] Referral ID Status Reason Start Date Expiration Date Visits Re quested Visits Authorized [id number] Closed 02/07/2023 03/03/2024 1 1 Reason Comments Other EGD Specialty Diagnoses / Procedures Referred By Contac t Referred To Contact Diagnoses Sacroiliitis Sacroiliitis [M46.1] Procedures [place] INJECT SI JOINT ARTHRGRPHY&/ANES/STEROID W/IMAGE INJECTION FOR ARTHROGRAPHY SACROILIAC W/ IMAGE GUIDANCE Baldev Ruiz MD [facility] [address] [place] [id number] Referral ID Status Reason Start Date Expiration Date Visits Re quested Visits Authorized [id number] 07/19/2023 1 1 John Malcolm DO - 03/30/2020 9:07 AM EST H&P Notes (unrecognized sect ion and content) INTERVAL HISTORY AND PHYSICAL Patient Name: Yisel Hickman Admit Date: MR #: [id number] : 1975 The H&P has been reviewed and the patient has been examined. I concur with the findings of the H&P. There are no significant changes. It is appropriate to proceed with the planned procedure. John Malcolm DO 03/30/2020 9:07 AM documented in this encounter Yadira Barba RN - 03/30/2020 10:43 AM Nafisa Mcneil RN - 03/30/2020 10:02 AM EST Nursing Notes (unrecognized section and content) To d/c on cart. Pt. Rates discomfort 3 on 0-10 scale which is tolerable . Pt. Was dotting with kleenex to nose - red drainage - small amount. Splint to bridge of nose in place - steri strips intact. Pt has external nasal splint to bridge of nose in place by steri-strips that is dry and intact. Pt also has hubbard splints to internal bilateral nares in place. Pt has abrasions under right eye and chin from reported fall at home yesterday. documented in this encounter Brief Op Note - John Malcolm DO - 03/30/2020 9:09 AM EST Miscellaneous Notes (unrecog nized section and content) Brief Post Operative Note Patient Name: Yisel Hickman : 1975 (44 y.o.) Date of Service: 03/30/2020 CSN: [id number] Procedure(s): SEPTORHINOPLASTY Pre-Operative Diagnoses: * NASAL SEPTAL FRACTURE Post-Operative Diagnoses: Surgeon(s) and Role: * John Malcolm DO - Primary Anesthesiologist: Kaushal Arguelles MD NUTRITION FACULTY MEMBER: Aracelis Ortega CRNA Sizing Machine Operator: Thea Bro RN Physician Accreditation Manager: Jovita Asif PA-C Scrub Person: ST Michelle Operative findings: same Intra and immediate post-operative complications: none Type of anesthesia used: General Estimated blood loss: less than 50 mL Estimated urine output: Refer to surgical log Specimen(s): * No specimens in log * Implant(s): * No implants in log * Drain(s): * No LDAs found * Wound(s): * No LDAs found * John Malcolm DO 03/30/2020 9:09 AM documented in this encounter <item> Privacy Markings (unrecogniz ed section and content) Section Author: Yara May PROHIBITION ON REDISCLOSURE OF CONFIDENTIAL INFORMATION This notice accompanies a disclosure of information concerning a client made to you with the consent of such client. Care Teams (unrecognized sec tion and content) Ep Technologist Relationship Specialty Start Date End Date Glo Stroud, [place] [address] PCP - General Nurse Practitioner - Family 09/10/21 Ep Technologist Relationship Specialty Start Date End Date Glo Stroud, [place] [id number] PCP - General Nurse Practitioner 03/30/20 Ep Technologist Relationship Specialty Start Date End Date Glo Stroud, [address] [address] PCP - General Nurse Practitioner - Family 09/10/21 Ep Technologist Relationship Specialty Start Date End Date Glo Stroud [place] [id number] PCP - General Nurse Practitioner - Family 09/10/21 Ep Technologist Relationship Specialty Start Date End Date Glo Stroud [address] [address] PCP - General Nurse Practitioner - Family 09/10/21 Ep Technologist Relationship Specialty Start Date End Date Glo Stroud [address] [address] PCP - General Nurse Practitioner - Family 09/10/21 Ep Technologist Relationship Specialty Start Date End Date Glo Stroud FNP [address] [place] [id number] PCP - General Nurse Practitioner - Family 09/10/21 Ep Technologist Relationship Specialty Start Date End Date Glo Stroud CNP [address] [place], [place] [phone] PCP - General Nurse Practitioner 03/30/20 Ep Technologist Relationship Specialty Start Date End Date Glo Stroud CNP [address] [place], [place] [phone] (Fax) PCP - General Nurse Practitioner 03/30/20 Ep Technologist Relationship Specialty Start Date End Date Glo Stroud FNP [address] [place], [place] [phone] PCP - General Nurse Practitioner - Family 09/10/21 Ep Technologist Relationship Specialty Start Date End Date Glo Stroud FNP [address] [place] [id number] PCP - General Nurse Practitioner - Family 09/10/21 Ep Technologist Relationship Specialty Start Date End Date Glo Stroud APRN-SHANK FAKER [address] [place] [address] [place] [address] PCP - General 07/23/21 Ep Technologist Relationship Specialty Start Date End Date Glo Stroud FNP [address] [place] [id number] PCP - General Nurse Practitioner - Family 09/10/21 Ep Technologist Relationship Specialty Start Date End Date Glo Stroud FNP [address] [place] [id number] PCP - General Nurse Practitioner - Family 09/10/21 PRN Active and Recently Administ ered Medications (unrecognized section and content) FOR RECORDS PERTAINING TO PATIENTS WHO ARE OR HAVE BEEN ENROLLED IN A CHEMICAL DEPENDENCY/SUBSTANCEABUSE PROGRAM, SOME INFORMATION MAY BE OMITTED. This clinical summary was aggregated from multiple sources. Caution should be exercised in using it in the provision of clinical care. This summary normalizes information from multiple sources, and as a consequence, information in this document may materially change the coding, format and clinical context of patient data. In addition, data may be omitted in some cases. CLINICAL DECISIONS SHOULD BE BASED ON THE PRIMARY CLINICAL RECORDS. [employer] provides no warranty or guarantee of the accuracy or completeness of information in this document.
== END | disposition home or self-care (01) ==
LOC: SL 19:56
PROVIDERS: Visit Provider Psychiatry & Neurology Neurology
DX: G47.10 Hypersomnia, unspecified (principal)
CPT/HCPCS: 95810

== ENCOUNTER → 2023-08-09 | Outpatient (CLI) | payer OTHER, SELFPAY ==
--- NOTE | 2023-08-09 15:45 | MRI_ITS ---
STUDY: MRI BRAIN WITH AND WITHOUT CONTRAST REASON FOR EXAM: Female, 48 years old. Migraine headaches; cerebral aneurysm TECHNIQUE: Standardized multiplanar fat and water weighted pulse sequences were obtained. IV 20 cc Clariscan was administered for the contrast portion of the examination. COMPARISON: None. FINDINGS: Normal size of the ventricles and extra-axial spaces for the patient''s age. Normal white matter tracts of the supratentorial brain. There is no evidence for recent intracranial ischemia or other cause of cytotoxic edema on diffusion weighted imaging (DWI). Normal T2* images of the brain without demonstrated susceptibility artifact. There is no demonstrated hemosiderin stain. Normal bilateral basal ganglia. Normal thalami. There is no extra-axial fluid accumulation. Normal flow voids within the major intracranial circulation suggesting patency by spin echo criteria. There is a 0.7 cm aneurysm suggested at the right middle cerebral artery, series 9 image 10 Normal venous enhancement. There is no enhancing intra-axial or extra-axial abnormality. Normal sella turcica, pituitary gland, infundibular stalk, optic chiasm and hypothalamus. Normal tectal plate and pineal gland. There are mild increased signal in the white matter of the james. The midbrain and medulla are otherwise normal. Normal cerebellum. Normal basal cisterns. Normal bilateral temporal bones. Normal bilateral internal auditory canals. No demonstrated orbital abnormality, within the constraints of a routine brain study. Normal visualized paranasal sinuses. Normal calvarium and skull base. Normal visualized soft tissue structures. Normal visualized upper cervical spine. MRI/Brain W/WO Contrast IMPRESSION: Aneurysm at the right middle cerebral artery. MRA correlation recommended. Mild signal alteration of the james suggesting chronic ischemic change versus demyelination. No acute infarct. No hemorrhage. Electronically Signed: Mohamud Vaca MD at 0:00 EDT ,
== END | disposition home or self-care (01) ==
LOC: MRI 15:40
PROVIDERS: PCP Nurse Practitioner Family; Referring Provider Psychiatry & Neurology Neurology; Visit Provider Psychiatry & Neurology Neurology
DX: G43.109 Migraine with aura, not intractable, without status migrainosus (principal); I67.1 Cerebral aneurysm, nonruptured
CPT/HCPCS: 70553; A9575

== ENCOUNTER → 2023-09-16 | Outpatient (CLI) | payer OTHER, SELFPAY ==
[2023-09-16 12:21] LABS: Hematocrit 40.2 % (37-47); Hemoglobin 12.6 g/dL (12.0-15.0); Mean Corp Hgb Conc 31.3 g/dL (32-36); Mean Corpuscular Hgb 32.9 pg (27.0-32.0); Mean Platelet Vol. 10.2 fl (6.2-12.0); Platelet Count 366 K/mm3 (150-450); RBC Distribution Width CV 13.9 % (11.6-14.6); RBC Distribution Width SD 53.9 fl (35.1-43.9); Red Blood Count 3.83 M/mm3 (4.2-5.4); White Blood Count 6.4 K/mm3 (4.4-11.0)
[2023-09-16 13:18] LABS: ALB/GLOB Ratio 1.2 RATIO (0.9-2.4); AST(SGOT) 13 U/L (15-37); Alanine Aminotransfer ALT/SGPT 21 U/L (13-56); Albumin, Serum 3.7 g/dL (3.2-5.0); Alkaline Phosphatase 99 U/L (45-117); Anion Gap 2 (5-15); BUN 13 mg/dL (7-18); BUN/Creat Ratio 18.2 RATIO (10-20); Calcium,Total 9.2 mg/dL (8.5-10.1); Chloride 111 mmol/L (98-107); Creatinine, Serum 0.72 mg/dL (0.55-1.02); EST Glomerular Filtration Rate 92 mL/min (>60); Est Glom Filt Rate - Afr Amer 111 mL/min (>60); Glucose 98 mg/dL (74-106); Potassium 4.6 mmol/L (3.5-5.1); Protein, Total 6.7 g/dL (6.4-8.2); Sodium Level 140 mmol/L (136-145); T4 Free Direct 0.86 ng/dL (0.76-1.46); Thyroid Stim Hormone (TSH) 1.32 uIU/mL (0.358-3.74)
[2023-09-18 09:06] LABS: Vitamin B12 197 pg/mL (211-911)
[2023-09-20 11:09] LABS: Vitamin B1, Thiamine 131.3 nmol/L (66.5-200.0)
== END | disposition home or self-care (01) ==
LOC: LAB 11:30
PROVIDERS: PCP Nurse Practitioner Family; Referring Provider Psychiatry & Neurology Neurology; Visit Provider Psychiatry & Neurology Neurology
DX: E03.9 Hypothyroidism, unspecified (principal); R63.5 Abnormal weight gain; Z98.84 Bariatric surgery status; Z86.39 Personal history of other endocrine, nutritional and metabolic disease
CPT/HCPCS: 36415; 80053; 82607; 82652; 82746; 84425; 84439; 84443; 85027

== ENCOUNTER → 2023-11-02 | Outpatient (CLI) | payer OTHER, SELFPAY | END | disposition home or self-care (01) | LOC: SL 11:16 | PROVIDERS: PCP Nurse Practitioner Family; Visit Provider Nurse Practitioner Acute Care | DX: G47.33 Obstructive sleep apnea (adult) (pediatric) (principal) ==

== ENCOUNTER → 2024-01-01 | Outpatient (CLI) | payer OTHER, SELFPAY ==
--- NOTE | 2024-01-01 15:03 | CT_ITS ---
EXAM: CT CHEST, LUNG CANCER SCREENING WITHOUT INTRAVENOUS CONTRAST CLINICAL INDICATION: smoking 34-19-qdta-years TECHNIQUE: Helically acquired images were obtained of the chest without intravenous contrast using low dose (LDCT) lung cancer screening protocol. This CT exam was performed using one or more of the following dose reduction techniques: automated exposure control, adjustment of the mA and/or kV according to patient size, and/or use of iterative reconstruction technique. COMPARISON: No relevant prior studies available. FINDINGS: LUNGS AND PLEURAL SPACES: 3 mm noncalcified right upper lobe parenchymal pulmonary nodule (series 2, image 63). No pleural effusion or thickening. No pneumothorax. HEART: No significant abnormality. Heart size is normal. No pericardial effusion. No significant coronary artery calcifications. MEDIASTINUM: Medium hiatal hernia. No mediastinal or hilar adenopathy. Esophagus is unremarkable. THYROID: No significant abnormality. No thyroid lesions. BONES/JOINTS: No significant abnormality. No suspicious lytic or blastic abnormality. VASCULATURE: Minimal atherosclerosis. Thoracic aorta is non-dilated. LYMPH NODES: No significant abnormality. No enlarged lymph nodes. CT/Low Dose CT Lung Screening IMPRESSION: 3 mm noncalcified right upper lobe parenchymal pulmonary nodule (series 2, image 63). ACR Lung CT Screening Reporting And Data System (Lung-RADS) score: 2S - Benign Appearance or Behavior. Additional clinically significant or potentially clinically significant findings are described. Recommend continued annual screening with a low-dose CT (LDCT) in 12 months. Electronically Signed: Tai Rivera DO at 20:31 EDT ,
== END | disposition home or self-care (01) ==
PROVIDERS: PCP Nurse Practitioner Family; Referring Provider Nurse Practitioner Acute Care; Visit Provider Nurse Practitioner Acute Care
DX: Z12.2 Encounter for screening for malignant neoplasm of respiratory organs (principal); F17.210 Nicotine dependence, cigarettes, uncomplicated
CPT/HCPCS: 71271